=== PATIENT | female | born 1945 | race Native Hawaiian/Other Pacific Islander ===

== ENCOUNTER 2019-01-20 12:54 | Outpatient (CLI) | payer OTHER, MEDICARE | END 2019-01-20 19:40 | disposition home or self-care (01) | LOC: RAD 12:54 | DX: M25.561 Pain in right knee (principal) ==

== ENCOUNTER 2020-12-27 14:21 | Outpatient (CLI) | payer OTHER, MEDICARE | END 2020-12-27 21:03 | disposition home or self-care (01) | LOC: RAD 14:21 | PROVIDERS: ATTEND Physician Assistant | DX: M25.561 Pain in right knee (principal); M25.562 Pain in left knee ==

== ENCOUNTER 2021-03-14 11:42 | Outpatient (CLI) | payer OTHER, MEDICARE | END 2021-03-14 21:45 | disposition home or self-care (01) | LOC: MRI 11:42 | PROVIDERS: ATTEND Physician Assistant | DX: M25.562 Pain in left knee (principal) ==